=== PATIENT | male | born 1945 | race Caucasian/White ===

== ENCOUNTER 2019-03-30 13:14 | Inpatient (IN) | payer OTHER, MEDICARE ==
[~2019-03-30] VITALS: Ht 175.3 cm; Wt 73.5 kg
--- NOTE | ~2019-03-30 | P ---
[facility] [place] [address] PROCEDURE REPORT Name: ANIKAKLEVER Oliveira Room #: 200-I ADM IN M.R.#: [id number] Admission: 04/04/19 ������������������ Attend Phys: Ayo Aguirre Discharge: ������������������ Date of : 45 Report #: [id number] THIS REPORT FOR: //name// CC: Ayo Abad DATE OF SERVICE: 04/05/2019 PROCEDURE: 1. Electrical cardioversion. 2. Supervision of conscious sedation. TRAFFIC INVESTIGATOR: Ayo Aguirre M.D. INDICATION: A 73-year-old male patient with symptomatic atrial fibrillation. BRIEF DESCRIPTION OF PROCEDURE: After informed consent was obtained, the patient has been anticoagulated therapeutically for 4 weeks, he was brought to the cardiac catheterization laboratory prep and hold. He was sedated with 4 mg of Versed and 25 of Demerol, during which continuous electrocardiographic and oximetric monitoring was performed. AP pads were then positioned and 20 pounds of pressure was applied anteriorly. He underwent one isolated biphasic shock at 200 joules, which converted him to sinus bradycardia. Post-cardioversion, he was reversed with 0.4 Romazicon and monitored closely. There were no complications. The patient tolerated the procedure well. ��������������������������������������������� ���������������������������������������� By: ��������������������������������������������� 1110 1120 Ayo Aguirre MD /nt
[2019-04-04 12:25] VITALS: BP 124/77
--- NOTE | 2019-04-04 12:39 | NUR ---
PT BEING ADMITTED TO 2N, A&0X4, AFIB RATE IN 60S, ACCOMPANIED BY SPOUSE, STAFF SET HIM UP W/IV, ELECTRODES, VS. PT STATES HE IS HUNGRY. NO COLD FOOD TRAYS ON ANY FLOOR, PT WITH NO FOOD DIET, GAVE HEALTHY SNACKS AND DIET SEVEN UP THEY CAME IN HUNGRY. WILL DO ADMISSION AND CALL PHYSICIAN ON ANY MEDS NEEDED
[2019-04-04] MEDS ORDERED: NAMENDA 10 MG T10 MG PO (13:09)
[2019-04-04] MEDS ORDERED: PROPRANOLOL 1010 MG PO (13:10)
[2019-04-04] MEDS ORDERED: FINASTERIDE5 MG PO (13:11)
[2019-04-04] MEDS ORDERED: ELIQUIS5 MG PO (13:11)
[2019-04-04] MEDS ORDERED: MELATONIN5 M1 PO (13:13)
[2019-04-04] MEDS ORDERED: FLOMAX0.4 MG PO (13:14)
[2019-04-04] MEDS ORDERED: NORVASC5 MG PO (13:14)
[2019-04-04 13:50] LABS: CALCIUM 8.8 mg/dL (8.5-10.1); POTASSIUM 4.9 mmol/L (3.5-5.1)
--- NOTE | 2019-04-04 18:38 | NUR ---
ADDITIONAL ASSESSMENT: PT VERY TALKATIVE LATER IN SHIFT. EXPLAINS THEY WENT TO [place] AND RETURNED ABOUT TWO WEEKS AGO, ALL THE COUPLES ENDED UP WITH A COUGH, NONPRODUCTIVE. HAS SLIGHT TREMORS WITH LUE, FAINT. PT CALLS WITH ANY NEEDS, UP IN CHAIR WITH AMIODARONE RUNNING
[2019-04-04 20:10] VITALS: BP 110/64
[2019-04-05 04:45] VITALS: BP 120/71
--- NOTE | 2019-04-05 05:12 | NUR ---
ASSUMED PT CARE AT 1900 WITH NO SIGN OF DISTRESS NOTED IN PT. PT IS ALERT AND ORIENTED. ASSESSMENT COMPLETED AND DOCUMENTED. VITAL SIGNS STABLE, PT IS IN AFIB. SCHEDULED MEDS ADMINISTERED TO PT. PT IS NPO AFTER MIDNIGHT FOR AN ELECTIVE CARDIOVERSION. PT VERBALIZES UNDERSTANDING. PT IS ON ROOM AIR. NO SIGN OF DISTRESS NOTED IN PT. PT IS STABLE. DENIES THERESE FURTHER NEEDS AT THIS TIME.
--- NOTE | 2019-04-05 08:05 | EKG ---
[address] [address] ELECTROCARDIOGRAM REPORT Name: ANIKAKLEVER Tee Room #: 200-I ADM IN M.R.#: [id number] ������������������ Admission: 04/04/19 ������������������ Attend Phys: Ayo Aguirre Discharge: ������������������ Date of : 45 Report #: [id number] ����������������������������������������������������������������� [id number] THIS REPORT FOR: //name// [facility] Test Date: 2019-04-05 Test Time: 04:50:52 Pat Name: KLEVER DONALDSON Department: Room: 200 I Gender: M Machine Set Up: INA : 1945 Requested By: Ilene Cook Order Number: [id number] MD: David Kenyon Measurements Intervals [place] Rate: 68 P: VT: QRS: 16 QRSD: 95 T: 43 QT: 428 QTc: 456 Interpretive Statements Atrial fibrillation No previous ECG available for comparison Electronically Signed On 04-05-2019 8:05:34 CDT by David Kenyon [email or web address] ��������������������������������������������� <ELECTRONICALLY SIGNED> ���������������������������������������� By: David Kenyon MD, [facility] ��������������������������������������������� 04/05/19 0805 0450 0450 David Kenyon MD, FACC /EPI
[2019-04-05 08:33] VITALS: BP 137/72
--- NOTE | 2019-04-05 11:31 | NUR ---
PT AWAKE AFTER CARDIOVERTED WITH 200 JOULES TO SINUS BRADYCARDIA. GIVEN TOTAL OF VERSED 3MG AND DEMEROL 25 MG FOR SEDATION AND REVERSED WITH ROMAZICON 0.4 MG AT 1104. AMIODARONE DRIP STOPPED PRIOR TO PROCEDURE. REPORT TO ORALIA PETTIT ON CCU PRIOR TO TRANSFER BACK TO ROOM
[2019-04-05 12:23] VITALS: BP 103/50
[2019-04-05] MEDS ORDERED: PACERONE 200 M200 M1 PO (15:36)
[2019-04-05 15:48] VITALS: BP 103/50
--- NOTE | 2019-04-05 16:29 | NUR ---
ASSESSMENT CHARTED - MEDS PER DEC . NO CO'S OF PAIN OR NAUSEA. BRYAN DIET AND FLUIDS. PT UP AD MINDY IN ROOM - PT WITH CARDIVERSION THIS AM - PT BACK TO SINUS RHYTHM - PT HOME THIS AFTERNOON - INSTRUCTION RE HOME MEDS/ CARE AND FOLLOW UP GIVEN TO PATIENT AND SPOUSE - STATED UNDERSTANDING OF INSTRUCTION GIVEN. IV AND MONITOR REMOVED PRIOR TO D/C. PT LEFT UNIT VIA WHEELCHAIR - HOME VIA PVT VEHICLE ACCOMPANIED BY - NO CO'S AT TIME OF D/C.
== END 2019-04-05 16:20 | disposition home or self-care (01) | DRG 310 ==
LOC: 2N 13:14 → ENTRNSPT 04-05 16:15 → 2N 04-05 16:20
PROVIDERS: Nurse Practitioner Gerontology; ADMIT Internal Medicine
PROC: 5A2204Z Restoration of Cardiac Rhythm, Single (ICD-10-PCS; principal; 2019-04-05)
DX: I48.1 Persistent atrial fibrillation (principal); I10 Essential (primary) hypertension; E78.5 Hyperlipidemia, unspecified; G25.0 Essential tremor; G89.29 Other chronic pain; M54.9 Dorsalgia, unspecified; Z79.899 Other long term (current) drug therapy; Z98.52 Vasectomy status; Z82.49 Family history of ischemic heart disease and other diseases of the circulatory system; Z83.3 Family history of diabetes mellitus; Z80.9 Family history of malignant neoplasm, unspecified
CPT/HCPCS: 10081; 10797

== ENCOUNTER → 2020-03-07 | Outpatient (CLI) | payer OTHER, MEDICARE ==
[~2020-03-07] MED LIST: ELIQUIS5 MG PO; FINASTERIDE5 MG PO; FLOMAX0.4 MG PO; MELATONIN5 M1 PO; NAMENDA 10 MG T10 MG PO; NORVASC5 MG PO; PACERONE 200 M200 M1 PO; PROPRANOLOL 1010 MG PO
== END ==
LOC: SJCVC 14:49
PROVIDERS: ATTEND Internal Medicine
DX: R94.31 Abnormal electrocardiogram [ECG] [EKG] (principal); I48.0 Paroxysmal atrial fibrillation; T14.8XXA Other injury of unspecified body region, initial encounter; E78.00 Pure hypercholesterolemia, unspecified; Z79.899 Other long term (current) drug therapy; Z87.891 Personal history of nicotine dependence; T14.90XA Injury, unspecified, initial encounter; X58.XXXA Exposure to other specified factors, initial encounter; Y93.89 Activity, other specified; Y92.89 Other specified places as the place of occurrence of the external cause; Y99.8 Other external cause status

== ENCOUNTER → 2020-03-21 | Outpatient (CLI) | payer OTHER, MEDICARE | LOC: SJCVCIMAG 08:20 | PROVIDERS: ATTEND Internal Medicine | DX: I08.8 Other rheumatic multiple valve diseases (principal); I48.0 Paroxysmal atrial fibrillation; R25.1 Tremor, unspecified; R07.9 Chest pain, unspecified; R00.1 Bradycardia, unspecified; E78.5 Hyperlipidemia, unspecified ==